=== PATIENT | female | born 1955 | race Caucasian/White ===

== ENCOUNTER 2023-02-24 16:50 | Emergency (ER) | payer MEDICARE, SELFPAY ==
[2023-02-24 16:59] VITALS: BP 165/81; PULSE 100; RESP 20; TEMP 36.9; O2SAT 94; BMI 30.2
--- NOTE | 2023-02-24 17:24 | ED_ITS ---
HPI - Abdominal Pain General Chief Complaint: Abdominal Pain Stated Complaint: ADBOMINAL PAIN Time Seen by Provider: 02/24/23 17:10 Source: patient Mode of arrival: Wheelchair History of Present Illness HPI narrative: Patient is a 67-year-old female who presents to the emergency department for the evaluation of flank pain. Patient states she has been having diarrhea off and on for the last several days, she has a history of diverticulitis and was admitted to [facility] for diverticulitis two months ago. She has a gastrointestinal specialist at that facility. She states today this afternoon she developed severe pain in the left lower quadrant radiating into the left flank. 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 She denies urinary changes. She has not noted any blood in her stool. No fevers or vomiting although she does feel nauseous. Pain is worse with movement. She denies any previous abdominal surgeries. Related Data Home Medications Medication Instructions Recorded Confirmed Vitamin B12 PO DAILY 02/24/23 cholecalciferol (vitamin D3) 125 5,000 unit PO DAILY 02/24/23 02/24/23 mcg (5,000 unit) capsule diltiazem HCl 120 mg 120 mg PO BID 02/24/23 02/24/23 capsule,extended release 24 hr esomeprazole magnesium 20 mg 40 mg PO DAILY 02/24/23 02/24/23 capsule,delayed release (Nexium) hydrochlorothiazide 12.5 mg tablet 12.5 mg PO DAILY 02/24/23 02/24/23 infliximab 100 mg intravenous IV .Q6 wks 02/24/23 solution (Remicade) leflunomide 20 mg tablet 20 mg PO DAILY 02/24/23 02/24/23 lisinopril 40 mg tablet 40 mg PO DAILY 02/24/23 02/24/23 methocarbamol 500 mg tablet 500 mg PO QID 02/24/23 02/24/23 methocarbamol 500 mg tablet 500 mg PO TID PRN pain 02/24/23 02/24/23 prednisone 20 mg tablet 20 mg PO DAILY 02/24/23 02/24/23 sulfasalazine 500 mg tablet 0.5 g PO BID 02/24/23 02/24/23 Previous Rx's Medication Instructions Recorded ciprofloxacin HCl 500 mg tablet 500 mg PO Q12H #14 tabs 02/24/23 metronidazole 500 mg tablet 500 mg PO BID 7 days #14 tabs 02/24/23 ondansetron 4 mg disintegrating 4 mg PO Q6H PRN nausea and 02/24/23 tablet vomiting #12 tabs oxycodone-acetaminophen 5 mg-325 1 tab PO Q6H PRN pain #12 tabs 02/24/23 mg tablet (Percocet) Allergies Allergy/AdvReac Type Severity Reaction Status Date / Time codeine Allergy Severe Verified 02/24/23 16:59 fentanyl Allergy Severe Verified 02/24/23 17:07 lorazepam [From Ativan] Allergy Severe Verified 02/24/23 16:59 Review of Systems ROS Constitutional Denies: fever or chills Ears, nose, mouth, and throat Denies: throat pain Cardiovascular Denies: chest pain Respiratory Denies: shortness of breath or cough Gastrointestinal Reports: abdominal pain and diarrhea; Denies: vomiting Genitourinary Denies: painful urination Musculoskeletal Reports: back pain Integumentary/Breast Denies: rash Exam Narrative Exam Narrative: Gen.: Awake, alert, in no distress Head: Normocephalic, atraumatic ENT: Moist mucous membranes Respiratory: No respiratory distress, lungs clear bilaterally Cardio: Regular rate and rhythm Gastrointestinal: Abdomen is soft, tender in the left lower quadrant and left flank with voluntary guarding, no rebound Extremities: Moves extremities equally, no injuries noted Psych: Normal mood and affect Neuro: No focal neuro deficit Skin: Warm, dry, intact Constitutional Vital Signs - 24 hr 02/24/23 16:59 02/24/23 17:51 02/24/23 18:31 Temperature 98.4 F Pulse Rate [Monitor] 100 H 94 H Respiratory Rate 20 16 Blood Pressure [Left Arm] 165/81 H Pulse Oximetry 94 L 95 Oxygen Delivery Method Room Air Room Air Room Air Course Vital Signs Vital signs: Vital Signs Temperature 98.4 F 02/24/23 16:59 Pulse Rate 100 H 02/24/23 16:59 Respiratory Rate 20 02/24/23 16:59 Blood Pressure 165/81 H 02/24/23 16:59 Pulse Oximetry 94 L 02/24/23 16:59 Oxygen Delivery Method Room Air 02/24/23 16:59 Temperature 98.4 F 02/24/23 16:59 Pulse Rate 94 H 02/24/23 18:31 Respiratory Rate 16 02/24/23 18:31 Blood Pressure 165/81 H 02/24/23 16:59 Pulse Oximetry 95 02/24/23 18:31 Oxygen Delivery Method Room Air 02/24/23 18:31 MDM - Abdominal Pain MDM Narrative Medical decision making narrative: Patient treated with IV fluids, Dilaudid, Zofran with significant improvement and she is resting comfortably on reevaluation. Lab studies show no leukocytosis or elevated lactic acid. Stable anemia that is improved for the patient. 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 This CT shows no evidence of acute diverticulitis, abscess or perforation. There is a renal stone noted in the left kidney. Patient will be treated with pain medication, she has Bentyl at home. Cipro and Flagyl given for empiric treatment of possible early diverticulitis based on the patient's history of diarrhea and history of diverticulitis. Follow-up with PCP and gastrointestinal specialist and return to the Emergency Room if symptoms change or worsen. Medical Records Attestation: I reviewed the patient's medical records. Lab Data Attestation: I reviewed the patient's lab results. Labs: Lab Results 02/24/23 Range/Units 17:40 WBC 10.7 (4.0-11.0) 10^3/uL RBC 3.52 L (4.20-5.40) 10^6/uL Hgb 10.7 L (12.0-16.0) g/dL Hct 34.7 L (36.0-48.0) % MCV 98.6 (81.0-99.0) fL MCH 30.4 (26.7-34.0) pg MCHC 30.8 (29.9-35.2) g/dL RDW 15.2 H (11.0-15.0) % Plt Count 261 (150-450) 10^3/uL MPV 10.5 (9.5-13.5) fL Neut % (Auto) 58.4 (43.0-75.0) % Lymph % (Auto) 29.2 (20.5-60.0) % [place] % (Auto) 11.1 (1.7-12.0) % Eos % (Auto) 0.3 L (0.9-7.0) % Baso % (Auto) 0.6 (0.2-2.0) % Neut # (Auto) 6.3 (1.4-6.5) 10^3/uL Lymph # (Auto) 3.1 (1.2-3.8) 10^3/uL [place] # (Auto) 1.2 H (0.3-0.8) 10^3/uL Eos # (Auto) 0.0 (0.0-0.7) 10^3/uL Baso # (Auto) 0.1 (0.0-0.1) 10^3/uL Abs Immat Gran (auto) 0.04 H (0.00-0.03) 10^3/uL Imm/Tot Granulo (auto) 0.4 (0.0-0.5) % Sodium 135 L (136-145) mmol/L Potassium 4.5 (3.5-5.1) mmol/L Chloride 100 (98-107) mmol/L Carbon Dioxide 26.7 (21.0-32.0) mmol/L Anion Gap 12.8 BUN 21.0 H (7.0-18.0) mg/dL Creatinine 1.29 H (0.55-1.02) mg/dL Est GFR ( Amer) 50 L (>=60) Est GFR (Non-Af Amer) 41 L (>=60) BUN/Creatinine Ratio 16.3 Glucose 107 H (74-106) mg/dL Lactate 1.8 (0.4-2.0) mmol/L Calcium 8.9 (8.5-10.1) mg/dL Total Bilirubin 0.2 (0.2-1.0) mg/dL AST 13 L (15-37) U/L ALT 25 (14-59) U/L Alkaline Phosphatase 46 (46-116) U/L Total Protein 7.3 (6.4-8.2) g/dL Albumin 3.4 (3.4-5.0) g/dL Globulin 3.9 g/dL Albumin/Globulin Ratio 0.9 Lipase 122.0 (73.0-393.0) U/L Imaging Data CT scan - abdomen: Attestation: I have reviewed the pertinent imaging results. Radiologist's impression: Procedure: CT abdomen pelvis wo con EXAM: CT abdomen pelvis wo con HISTORY: left flank pain COMPARISON: None. TECHNIQUE: Axial CT imaging was performed through the abdomen and pelvis without intravenous contrast. Multiplanar reformats were performed. Dose reduction techniques were achieved by using automated exposure control and/or adjustment of mA and/or kV according to patient size and/or use of iterative reconstruction technique. FINDINGS: Lung bases: Lung bases are clear. No pleural effusion. GI upper: Unremarkable. Liver: Normal size and contour. Gallbladder: No significant abnormality. No cholelithiasis. Biliary system: No intra or extrahepatic biliary ductal dilatation. Spleen: Normal size. Pancreas: Unremarkable. Adrenal glands: Normal adrenal glands. Kidneys/ureters: Atrophic left kidney. Normal contours. No hydronephrosis. There is a 0.2 cm nonobstructing left renal stone. Vessels: No aneurysmal dilatation of the aorta. Atherosclerotic disease is noted. Lymph Nodes: No lymphadenopathy. Small bowel: No wall thickening or dilatation. Colon: No dilatation. Colonic diverticulosis. Appendix: No findings of appendicitis. Peritoneal cavity: No free fluid or pneumoperitoneum. Lower : Unremarkable. Bones: No acute bony abnormality. There are degenerative changes of the lumbar spine. Bilateral pedicle screw fixation of L4-L5 and intervertebral body spacer at L2-L3 through L4-L5 are noted. Soft tissues: No acute finding. Additional findings: Small fat-containing right Bochdalek hernia. IMPRESSION: Atrophic left kidney.0.2 cm nonobstructing left renal stone. Electronically authenticated by: MILA SCOTT Date: 02/24/2023 18:23 Discharge Plan Discharge Chief Complaint: Abdominal Pain Clinical Impression: Abdominal pain Patient Disposition: Home, Self-Care Time of Disposition Decision: 18:59 Condition: Good Prescriptions / Home Meds: New ciprofloxacin HCl 500 mg tablet 500 mg PO Q12H Qty: 14 0RF metronidazole 500 mg tablet 500 mg PO BID 7 Days Qty: 14 0RF ondansetron 4 mg tablet,disintegrating 4 mg PO Q6H PRN (Reason: nausea and vomiting) Qty: 12 0RF oxycodone-acetaminophen [Percocet] 5-325 mg tablet 1 tab PO Q6H PRN (Reason: pain) Qty: 12 0RF No Action cholecalciferol (vitamin D3) 125 mcg (5,000 unit) capsule 5,000 unit PO DAILY diltiazem HCl 120 mg capsule,extended release 24hr 120 mg PO BID esomeprazole magnesium [Nexium] 20 mg capsule,delayed release(DR/EC) 40 mg PO DAILY hydrochlorothiazide 12.5 mg tablet 12.5 mg PO DAILY lisinopril 40 mg tablet 40 mg PO DAILY methocarbamol 500 mg tablet 500 mg PO TID PRN (Reason: pain) methocarbamol 500 mg tablet 500 mg PO QID prednisone 20 mg tablet 20 mg PO DAILY Rx Instructions: days 11-21 of therapy infliximab [Remicade] 100 mg recon soln IV .Q6 wks leflunomide 20 mg tablet 20 mg PO DAILY sulfasalazine 500 mg tablet 0.5 g PO BID Rx Instructions: give with food (meal/snack) Vitamin B12 tablet PO DAILY Instructions: Abdominal Pain (ED) Stand Alone Forms: Portal Instructions Referrals: Physician,Non-Staff, MD [Primary Care Provider] - 1 week
[2023-02-24] MEDS: 0.9 % SODIUM CHLORIDE 1,000 ML 500 ML IV (17:43)
[2023-02-24] MEDS: ONDANSETRON PF 4 MG/2 ML VIAL IV (17:43)
[2023-02-24] MEDS: HYDROMORPHONE HCL 1 MG/ML CARTRIDGE IVP (17:43)
[2023-02-24 18:09] LABS: Basophils Absolute Auto 0.1 10^3/uL (0.0-0.1); Basophils Percent Auto 0.6 % (0.2-2.0); Eosinophils Percent Auto 0.3 % (0.9-7.0); Hematocrit 34.7 % (36.0-48.0); Hemoglobin 10.7 g/dL (12.0-16.0); Immature Granulocytes Abs Auto 0.04 10^3/uL (0.00-0.03); Immature Granulocytes Pct Auto 0.4 % (0.0-0.5); Lymphocytes Absolute Auto 3.1 10^3/uL (1.2-3.8); Lymphocytes Percent Auto 29.2 % (20.5-60.0); Mean Corpuscular HGB Conc 30.8 g/dL (29.9-35.2); Mean Corpuscular Hemoglobin 30.4 pg (26.7-34.0); Mean Corpuscular Volume 98.6 fL (81.0-99.0); Mean Platelet Volume 10.5 fL (9.5-13.5); Monocytes Absolute Auto 1.2 10^3/uL (0.3-0.8); Monocytes Percent Auto 11.1 % (1.7-12.0); Neutrophils Absolute Auto 6.3 10^3/uL (1.4-6.5); Neutrophils Percent Auto 58.4 % (43.0-75.0); Platelet Count 261 10^3/uL (150-450); Red Blood Count 3.52 10^6/uL (4.20-5.40); Red Cell Distribution Width 15.2 % (11.0-15.0); White Blood Count 10.7 10^3/uL (4.0-11.0)
[2023-02-24 18:22] LABS: Alanine Aminotransferase 25 U/L (14-59); Albumin Globulin Ratio 0.9; Albumin Level 3.4 g/dL (3.4-5.0); Alkaline Phosphatase 46 U/L (46-116); Anion Gap 12.8; Aspartate Amino Transferase 13 U/L (15-37); BUN Creatinine Ratio 16.3; Bilirubin Total 0.2 mg/dL (0.2-1.0); Calcium 8.9 mg/dL (8.5-10.1); Carbon Dioxide 26.7 mmol/L (21.0-32.0); Chloride 100 mmol/L (98-107); Estimated GFR (African America 50 (>=60); Estimated GFR (Non-African Ame 41 (>=60); Globulin 3.9 g/dL; Glucose 107 mg/dL (74-106); Potassium 4.5 mmol/L (3.5-5.1); Sodium 135 mmol/L (136-145); Total Protein 7.3 g/dL (6.4-8.2)
[2023-02-24 18:28] LABS: Lactate/Lactic Acid 1.8 mmol/L (0.4-2.0)
[2023-02-24 18:31] VITALS: PULSE 94; RESP 16; O2SAT 95
--- NOTE | 2023-02-24 18:32 | PC.NURSE ---
pt states pain in abd and back area better after pain meds
--- NOTE | 2023-02-24 19:20 | PC.NURSE ---
d/c instructions complete, pt verbalized understanding. Pt states unable to take the Cipro and PA called pt's pharmacy to change this ti Augmentin. Pt told not to fill the Cipro and pt states understanding. Pt with family member and family member took pt out to car. Told to return for any problems or concerns.
== END 2023-02-24 19:22 | disposition home or self-care (01) ==
PROVIDERS: Physician Assistant; Emergency Provider Emergency Medicine Emergency Medical Services
DX: R10.9 Unspecified abdominal pain (principal); N26.1 Atrophy of kidney (terminal); Z87.442 Personal history of urinary calculi; Z79.899 Other long term (current) drug therapy
CPT/HCPCS: 36415; 74176; 80053; 83605; 83690; 85025; 87507; 96374; 96375; 99284; J1170